=== PATIENT | male | born 1945 | race Caucasian/White ===

== ENCOUNTER 2020-04-04 20:00 | Inpatient (IN) ==
[2020-04-04] MEDS ORDERED: cefTRIAXone 1,000 MG in SODIUM CHLORIDE 0.9% 100 ML IV STA (20:49)
[2020-04-04] MEDS ORDERED: FUROSEMIDE 40 MG/4 ML VIAL IV STA (20:49)
[2020-04-04] MEDS ORDERED: methylPREDNISolone SOD SUC 125 MG/2 ML VIAL IV STA (20:49)
[2020-04-04] MEDS ORDERED: ONDANSETRON 4 MG/2 ML VIAL IV STA (20:49)
[2020-04-04 21:25] LABS: Basophils # 0.1 10*3/uL (0.0-0.2); Basophils % 0.3 % (0.0-0.8); Eosinophils % 0.1 % (0.00-10.9); Hematocrit 42.4 VOL% (42.0-52.0); Lymphocytes # 1.5 10*3/uL (1.4-4.0); Lymphocytes % 5.1 % (21.2-54.2); Mean Corpuscular Volume 83.6 FL (87-102); Mean Platelet Volume 9.9 FL (9.6-12.0); Monocytes % 8.3 % (1.7-12.7); Neutrophils % 85.2 % (38.7-73.9); Platelet Count 307 T/CUMM (130-400); Red Blood Count 5.07 MC/CUMM (3.8-5.5); Red Cell Distribution Width 13.7 % (9.3-17.3); White Blood Count 30.2 T/CUMM (4-12)
[2020-04-04 21:47] LABS: Albumin 2.7 G/DL (3.4-5.0); Bilirubin,Total 0.7 MG/DL (0.2-1.0); Calcium 8.7 MG/DL (8.5-10.1); Osmolality,Calculated 268.9 MOS/KG (273-304)
[2020-04-04 21:50] LABS: INR 1.2; PT Patient Result 12.4 SECS (9.8-11.9)
[2020-04-04 21:59] LABS: Apearance,Urine CLOUDY (Clear); Bacteria,Urine Many /HPF (Few); Bilirubin,Urine Negative (Negative); Blood, Urine Large mg/dL (Negative); Glucose,Urine (UA) Negative (Negative); Ketones,Urine Negative (Negative); Mucus,Urine Occasional /LPF (Occasional); Nitrite,Urine Positive (Negative); Protein,Urine 30 MG/DL; RBC,Urine 17 /HPF (0-4); Squamous Epithelial Cell,Urine Occasional /HPF (0-10); Urine Color Amber (Yellow); Urine Specific Gravity 1.021 (1.001-1.035); WBC,Urine 528 /HPF (0-6)
[2020-04-05] MEDS ORDERED: ACETAMINOPHEN 325 MG TABLET PO PRN (02:21)
[2020-04-05] MEDS ORDERED: DEXTROSE 50% 25 GM/50 ML VIAL IV PRN (02:21)
[2020-04-05] MEDS ORDERED: ONDANSETRON 4 MG/2 ML VIAL IV PRN (02:21)
[2020-04-05] MEDS ORDERED: MAGNESIUM SULF RIDER 2 GM in PREMIX 1 EACH IV PRN (02:21)
[2020-04-05] MEDS ORDERED: DEXTROSE 50% 25 GM/50 ML SYRINGE IV PRN (02:21)
[2020-04-05] MEDS ORDERED: MAGNESIUM SULF RIDER 4 GM in PREMIX 1 EACH IV PRN (02:21)
[2020-04-05] MEDS ORDERED: GLUCAGON 1 MG VIAL IM PRN ×2 (02:21)
[2020-04-05] MEDS ORDERED: AZITHROMYCIN INJ 500 MG in SODIUM CHLORIDE 0.9% 250 ML IV SCH (02:30)
[2020-04-05] MEDS: AZITHROMYCIN 250 MG TABLET PO SCH (03:05)
[2020-04-05] MEDS: ENOXAPARIN 40 MG/0.4 ML SYRINGE SUBCUT SCH (06:30)
[2020-04-05 07:32] LABS: Basophils # 0.1 10*3/uL (0.0-0.2); Basophils % 0.3 % (0.0-0.8); Hematocrit 42.5 VOL% (42.0-52.0); Hemoglobin 13.9 GM/DL (14.0-18.0); Immature Granulocytes % 1.9 %; Lymphocytes # 0.7 10*3/uL (1.4-4.0); Lymphocytes % 2.6 % (21.2-54.2); Mean Corpuscular HGB Conc 32.7 GM/DL (32-36); Monocytes % 3.6 % (1.7-12.7); Neutrophils % 91.6 % (38.7-73.9); Platelet Count 256 T/CUMM (130-400); Red Cell Distribution Width 13.9 % (9.3-17.3); White Blood Count 26.9 T/CUMM (4-12)
[2020-04-05 08:33] LABS: Albumin 2.5 G/DL (3.4-5.0); Bilirubin,Total 0.5 MG/DL (0.2-1.0); Calcium 8.8 MG/DL (8.5-10.1); Ferritin 260.4 ng/ml (26-388); Osmolality,Calculated 274.2 MOS/KG (273-304); Total Protein 7.9 G/DL (6.4-8.3)
[2020-04-05 08:34] LABS: Anisocytosis 1+; Band Neutrophils 17 % (0-10); Lymphocytes 3 % (20-55); Platelet Estimate Normal; Segmented Neutrophils 76 % (50-85); Spherocytes Few; Total Cells Counted 100
[2020-04-05] MEDS ORDERED: ASPIRIN EC 81 MG TABLET PO SCH (09:00)
[2020-04-05 09:20] LABS: Calcium 9.3 MG/DL (8.5-10.1); Osmolality,Calculated 279.8 MOS/KG (273-304)
[2020-04-05 09:22] LABS: Risk Ratio 7.18; VLDL CHOLESTEROL 38.8 MG/DL
[2020-04-05] MEDS: LEVOTHYROXINE 75 MCG TABLET PO SCH (09:23)
[2020-04-05] MEDS: PANTOPRAZOLE 40 MG TABLET PO SCH (09:23)
[2020-04-05] MEDS: glipiZIDE 10 MG TABLET PO SCH ×2 (09:23→21:41)
[2020-04-05] MEDS: carvediloL 6.25 MG TABLET PO SCH ×2 (09:24→21:40)
[2020-04-05] MEDS: ZINC SULFATE 220 MG CAPSULE PO SCH (09:24)
[2020-04-05] MEDS: OMEGA 3 ACID ETHYL ESTERS 1 GM CAPSULE PO SCH ×2 (09:30→21:42)
[2020-04-05] MEDS: FUROSEMIDE 40 MG/4 ML VIAL IV SCH ×2 (09:31→15:53)
[2020-04-05] MEDS: INSULIN REGULAR 100 UNIT/ML SUBCUT SCH ×4 (09:33→21:00)
[2020-04-05] MEDS ORDERED: SODIUM POLYSTYRENE SULFATE 15 GM/60 ML BOTTLE PO STA (16:19)
[2020-04-05] MEDS: TAMSULOSIN 0.4 MG CAPSULE PO SCH (18:20)
[2020-04-05] MEDS ORDERED: INSULIN GLARGINE 100 UNIT/ML SUBCUT SCH (21:00)
[2020-04-05] MEDS: ASPIRIN EC 81 MG TABLET PO SCH (21:40)
[2020-04-05] MEDS: cefTRIAXone 1,000 MG in SODIUM CHLORIDE 0.9% 100 ML IV SCH (21:48)
[2020-04-06 06:28] LABS: Basophils % 0.1 % (0.0-0.8); Hematocrit 41.2 VOL% (42.0-52.0); Hemoglobin 13.1 GM/DL (14.0-18.0); Immature Granulocytes % 1.6 %; Immature Granulocytes Absolute 0.47 #; Lymphocytes # 0.9 10*3/uL (1.4-4.0); Lymphocytes % 3.2 % (21.2-54.2); Mean Corpuscular HGB Conc 31.8 GM/DL (32-36); Mean Corpuscular Volume 85.5 FL (87-102); Mean Platelet Volume 10.2 FL (9.6-12.0); Monocytes % 6.4 % (1.7-12.7); Neutrophils % 88.7 % (38.7-73.9); Platelet Count 297 T/CUMM (130-400); Red Blood Count 4.82 MC/CUMM (3.8-5.5); Red Cell Distribution Width 13.8 % (9.3-17.3); White Blood Count 28.5 T/CUMM (4-12)
[2020-04-06] MEDS: ENOXAPARIN 40 MG/0.4 ML SYRINGE SUBCUT SCH (06:38)
[2020-04-06] MEDS: LEVOTHYROXINE 75 MCG TABLET PO SCH (06:38)
[2020-04-06 06:47] LABS: Band Neutrophils 16 % (0-10); Lymphocytes 5 % (20-55); Platelet Estimate Normal; Segmented Neutrophils 68 % (50-85); Total Cells Counted 100
[2020-04-06 06:48] LABS: Anisocytosis 1+
[2020-04-06 06:49] LABS: Calcium 9.1 MG/DL (8.5-10.1); Osmolality,Calculated 288.5 MOS/KG (273-304)
[2020-04-06] MEDS: AZITHROMYCIN 250 MG TABLET PO SCH (09:14)
[2020-04-06] MEDS: OMEGA 3 ACID ETHYL ESTERS 1 GM CAPSULE PO SCH ×2 (09:14→22:14)
[2020-04-06] MEDS: PANTOPRAZOLE 40 MG TABLET PO SCH (09:14)
[2020-04-06] MEDS: FUROSEMIDE 40 MG/4 ML VIAL IV SCH ×2 (09:14→17:16)
[2020-04-06] MEDS: glipiZIDE 10 MG TABLET PO SCH ×2 (09:14→22:15)
[2020-04-06] MEDS: INSULIN REGULAR 100 UNIT/ML SUBCUT SCH ×4 (09:15→22:15)
[2020-04-06] MEDS: carvediloL 6.25 MG TABLET PO SCH ×2 (09:15→22:15)
[2020-04-06] MEDS ORDERED: ALBUTEROL/IPRATROPIUM 3 ML NEB RESP TX PRN (09:31)
[2020-04-06] MEDS: methylPREDNISolone SOD SUC 40 MG/1 ML VIAL IV SCH ×2 (10:54→18:16)
[2020-04-06] MEDS: TAMSULOSIN 0.4 MG CAPSULE PO SCH (18:30)
[2020-04-06] MEDS ORDERED: INSULIN GLARGINE 100 UNIT/ML SUBCUT SCH (21:00)
[2020-04-06] MEDS: cefTRIAXone 1,000 MG in SODIUM CHLORIDE 0.9% 100 ML IV SCH (22:12)
[2020-04-06] MEDS: ASPIRIN EC 81 MG TABLET PO SCH (22:15)
[2020-04-07] MEDS: INSULIN REGULAR 100 UNIT/ML SUBCUT SCH ×6 (00:36→22:38)
[2020-04-07] MEDS: methylPREDNISolone SOD SUC 40 MG/1 ML VIAL IV SCH ×2 (02:38→10:45)
[2020-04-07] MEDS: LEVOTHYROXINE 75 MCG TABLET PO SCH (06:16)
[2020-04-07] MEDS: ENOXAPARIN 40 MG/0.4 ML SYRINGE SUBCUT SCH (06:16)
[2020-04-07] MEDS: FUROSEMIDE 40 MG/4 ML VIAL IV SCH ×2 (10:44→18:30)
[2020-04-07] MEDS: AZITHROMYCIN 250 MG TABLET PO SCH (10:45)
[2020-04-07] MEDS: glipiZIDE 10 MG TABLET PO SCH ×2 (10:46→22:37)
[2020-04-07] MEDS: OMEGA 3 ACID ETHYL ESTERS 1 GM CAPSULE PO SCH ×2 (10:46→22:38)
[2020-04-07] MEDS: PANTOPRAZOLE 40 MG TABLET PO SCH (10:46)
[2020-04-07] MEDS: ZINC SULFATE 220 MG CAPSULE PO SCH (10:46)
[2020-04-07] MEDS: carvediloL 6.25 MG TABLET PO SCH ×2 (10:46→22:38)
[2020-04-07] MEDS ORDERED: INSULIN GLARGINE 100 UNIT/ML SUBCUT SCH (13:18)
[2020-04-07] MEDS: TAMSULOSIN 0.4 MG CAPSULE PO SCH (18:30)
[2020-04-07] MEDS: ASPIRIN EC 81 MG TABLET PO SCH (22:38)
[2020-04-07] MEDS: cefTRIAXone 1,000 MG in SODIUM CHLORIDE 0.9% 100 ML IV SCH (22:43)
[2020-04-08] MEDS: INSULIN REGULAR 100 UNIT/ML SUBCUT SCH ×3 (00:55→12:00)
[2020-04-08 05:51] LABS: Basophils # 0.1 10*3/uL (0.0-0.2); Basophils % 0.3 % (0.0-0.8); Hematocrit 42.1 VOL% (42.0-52.0); Hemoglobin 13.5 GM/DL (14.0-18.0); Immature Granulocytes % 2.3 %; Immature Granulocytes Absolute 0.54 #; Lymphocytes # 0.9 10*3/uL (1.4-4.0); Lymphocytes % 3.7 % (21.2-54.2); Mean Corpuscular HGB Conc 32.1 GM/DL (32-36); Mean Corpuscular Volume 84.7 FL (87-102); Mean Platelet Volume 10.3 FL (9.6-12.0); Monocytes % 5.3 % (1.7-12.7); Neutrophils % 88.4 % (38.7-73.9); Platelet Count 363 T/CUMM (130-400); Red Blood Count 4.97 MC/CUMM (3.8-5.5); White Blood Count 23.5 T/CUMM (4-12)
[2020-04-08] MEDS: LEVOTHYROXINE 75 MCG TABLET PO SCH (06:02)
[2020-04-08] MEDS: ENOXAPARIN 40 MG/0.4 ML SYRINGE SUBCUT SCH (06:02)
[2020-04-08 06:13] LABS: Hypochromasia 1+; Lymphocytes 8 % (20-55); Ovalocytes Slight; Platelet Estimate Adequate; Segmented Neutrophils 84 % (50-85); Total Cells Counted 100
[2020-04-08 06:21] LABS: Calcium 9.3 MG/DL (8.5-10.1); Osmolality,Calculated 303.5 MOS/KG (273-304)
[2020-04-08] MEDS: AZITHROMYCIN 250 MG TABLET PO SCH (08:41)
[2020-04-08] MEDS: carvediloL 6.25 MG TABLET PO SCH (08:41)
[2020-04-08] MEDS: FUROSEMIDE 40 MG/4 ML VIAL IV SCH (08:41)
[2020-04-08] MEDS: OMEGA 3 ACID ETHYL ESTERS 1 GM CAPSULE PO SCH (08:42)
[2020-04-08] MEDS: glipiZIDE 10 MG TABLET PO SCH (08:42)
[2020-04-08] MEDS: PANTOPRAZOLE 40 MG TABLET PO SCH (08:42)
[2020-04-08] MEDS ORDERED: predniSONE 20 MG TABLET PO SCH (09:00)
[2020-04-08 11:56] VITALS: BP 128/73
== END 2020-04-08 13:30 | disposition home or self-care (01) | DRG 871 ==
LOC: N.ED 20:00 → N.EDINP 04-05 02:21 → N.TELES 04-05 06:04
PROVIDERS: ADMIT Internal Medicine; ATTEND Internal Medicine

== ENCOUNTER 2020-06-26 17:01 | Inpatient (IN) ==
[2020-06-26 17:30] LABS: Basophils # 0.1 10*3/uL (0.0-0.2); Basophils % 0.6 % (0.0-0.8); Eosinophils # 1.1 10*3/uL (0.0-0.87); Eosinophils % 6.1 % (0.00-10.9); Hematocrit 40.6 VOL% (42.0-52.0); Hemoglobin 13.2 GM/DL (14.0-18.0); Immature Granulocytes % 0.8 %; Immature Granulocytes Absolute 0.14 #; Lymphocytes # 1.1 10*3/uL (1.4-4.0); Lymphocytes % 6.2 % (21.2-54.2); Mean Corpuscular HGB Conc 32.5 GM/DL (32-36); Mean Corpuscular Volume 81.5 FL (87-102); Mean Platelet Volume 9.3 FL (9.6-12.0); Monocytes % 7.9 % (1.7-12.7); Neutrophils % 78.4 % (38.7-73.9); Platelet Count 343 T/CUMM (130-400); Red Blood Count 4.98 MC/CUMM (3.8-5.5); Red Cell Distribution Width 13.8 % (9.3-17.3); White Blood Count 17.5 T/CUMM (4-12)
[2020-06-26 17:52] LABS: Albumin 2.4 G/DL (3.4-5.0); Bilirubin,Total 0.5 MG/DL (0.2-1.0); Calcium 8.4 MG/DL (8.5-10.1); Osmolality,Calculated 277.1 MOS/KG (273-304); Total Protein 7.1 G/DL (6.4-8.3)
[2020-06-26 17:56] LABS: Ferritin 147.1 ng/ml (26-388)
[2020-06-26] MEDS ORDERED: PIPERACILLIN/TAZOBACTAM 3,375 MG in SODIUM CHLORIDE 0.9% 100 ML IV STA (18:28)
[2020-06-26] MEDS ORDERED: FUROSEMIDE 40 MG/4 ML VIAL IV STA (18:28)
[2020-06-26] MEDS ORDERED: diphenhydrAMINE CAP 25 MG CAPSULE PO PRN (20:01)
[2020-06-26] MEDS ORDERED: hydrALAZINE 20 MG/1 ML VIAL IV PRN (20:01)
[2020-06-26] MEDS ORDERED: ACETAMINOPHEN 325 MG TABLET PO PRN (20:01)
[2020-06-26] MEDS ORDERED: ONDANSETRON 4 MG/2 ML VIAL IV PRN (20:01)
[2020-06-26] MEDS ORDERED: GLUCAGON 1 MG VIAL IM PRN ×2 (20:01)
[2020-06-26] MEDS ORDERED: guaiFENesin/DM ER 600-30 MG TABLET PO PRN (20:01)
[2020-06-26] MEDS ORDERED: DEXTROSE 50% 25 GM/50 ML VIAL IV PRN ×2 (20:01)
[2020-06-26] MEDS ORDERED: NICOTINE 21 MG/24 HR PATCH TRANSDERM PRN (20:01)
[2020-06-26] MEDS ORDERED: ZALEPLON 5 MG CAPSULE PO PRN (20:01)
[2020-06-26] MEDS ORDERED: DOCUSATE SODIUM 100 MG CAPSULE PO PRN (20:01)
[2020-06-26] MEDS ORDERED: AZITHROMYCIN INJ 500 MG in SODIUM CHLORIDE 0.9% 250 ML IV SCH (20:30)
[2020-06-26] MEDS ORDERED: SODIUM CHLORIDE 0.9% 100 ML IV ONE (20:54)
[2020-06-26] MEDS ORDERED: cefTRIAXone 1,000 MG in SYRINGE 1 EACH IV SCH (21:00)
[2020-06-26] MEDS: ENOXAPARIN 40 MG/0.4 ML SYRINGE SUBCUT SCH (21:11)
[2020-06-26] MEDS: INSULIN LISPRO 100 UNIT/ML SUBCUT SCH (21:47)
[2020-06-26] MEDS: traMADol 50 MG TABLET PO PRN (23:35)
[2020-06-27] MEDS: ALBUTEROL 2.5 MG/3 ML NEB RESP TX SCH ×4 (01:03→20:11)
[2020-06-27 05:38] LABS: Basophils # 0.1 10*3/uL (0.0-0.2); Basophils % 0.5 % (0.0-0.8); Eosinophils # 0.9 10*3/uL (0.0-0.87); Eosinophils % 4.6 % (0.00-10.9); Hemoglobin 11.9 GM/DL (14.0-18.0); Immature Granulocytes % 0.7 %; Immature Granulocytes Absolute 0.14 #; Lymphocytes # 1.6 10*3/uL (1.4-4.0); Mean Corpuscular HGB Conc 31.3 GM/DL (32-36); Mean Corpuscular Volume 82.8 FL (87-102); Mean Platelet Volume 9.8 FL (9.6-12.0); Monocytes % 8.7 % (1.7-12.7); Neutrophils % 77.5 % (38.7-73.9); Platelet Count 349 T/CUMM (130-400); Red Blood Count 4.59 MC/CUMM (3.8-5.5); Red Cell Distribution Width 13.8 % (9.3-17.3); White Blood Count 19.4 T/CUMM (4-12)
[2020-06-27 06:00] LABS: Calcium 8.5 MG/DL (8.5-10.1); Osmolality,Calculated 273.7 MOS/KG (273-304)
[2020-06-27] MEDS ORDERED: PANTOPRAZOLE 40 MG TABLET PO SCH (09:00)
[2020-06-27] MEDS ORDERED: AZITHROMYCIN 250 MG TABLET PO SCH (09:00)
[2020-06-27] MEDS: INSULIN LISPRO 100 UNIT/ML SUBCUT SCH ×4 (09:49→21:01)
[2020-06-27] MEDS: FUROSEMIDE 40 MG/4 ML VIAL IV SCH ×2 (09:51→17:46)
[2020-06-27] MEDS: traMADol 50 MG TABLET PO PRN (09:51)
[2020-06-27] MEDS ORDERED: POTASSIUM CHLORIDE 20 MEQ TABLET PO ONE ×2 (11:00→16:43)
[2020-06-27] MEDS: ASPIRIN EC 81 MG TABLET PO SCH (12:02)
[2020-06-27] MEDS ORDERED: ceFAZolin 2,000 MG in PREMIX 1 EACH IV ONE (16:28)
[2020-06-27] MEDS: VANCOMYCIN INJ 1,250 MG in SODIUM CHLORIDE 0.9% 250 ML IV SCH (17:47)
[2020-06-27] MEDS: PIPERACILLIN/TAZOBACTAM 3,375 MG in SODIUM CHLORIDE 0.9% 100 ML IV SCH (19:18)
[2020-06-27 19:40] LABS: Bilirubin,Urine Negative (Negative); Blood, Urine Small mg/dL (Negative); Glucose,Urine (UA) Negative (Negative); Hyaline Casts,Urine 5 /LPF (0-3); Ketones,Urine Negative (Negative); Mucus,Urine Occasional /LPF (Occasional); Nitrite,Urine Negative (Negative); Protein,Urine Negative; RBC,Urine 1 /HPF (0-4); Squamous Epithelial Cell,Urine Occasional /HPF (0-10); Urine Appearance Clear (Clear); Urine Color Amber (Yellow); Urine Specific Gravity 1.015 (1.001-1.035)
[2020-06-27 19:42] LABS: Urine Urobilinogen 0.2 EU/DL (0.2-1.0)
[2020-06-27] MEDS: TAMSULOSIN 0.4 MG CAPSULE PO SCH (21:01)
[2020-06-27] MEDS: ENOXAPARIN 40 MG/0.4 ML SYRINGE SUBCUT SCH (21:02)
[2020-06-27] MEDS: MORPHINE 4 MG/1 ML VIAL IV PRN (21:11)
[2020-06-28] MEDS: PIPERACILLIN/TAZOBACTAM 3,375 MG in SODIUM CHLORIDE 0.9% 100 ML IV SCH ×3 (00:38→16:34)
[2020-06-28] MEDS: ALBUTEROL 2.5 MG/3 ML NEB RESP TX SCH ×4 (02:12→19:23)
[2020-06-28] MEDS: VANCOMYCIN INJ 1,250 MG in SODIUM CHLORIDE 0.9% 250 ML IV SCH ×2 (05:17→20:36)
[2020-06-28 06:08] LABS: Basophils # 0.1 10*3/uL (0.0-0.2); Basophils % 0.7 % (0.0-0.8); Eosinophils % 5.5 % (0.00-10.9); Hematocrit 37.5 VOL% (42.0-52.0); Hemoglobin 11.8 GM/DL (14.0-18.0); Immature Granulocytes % 0.8 %; Immature Granulocytes Absolute 0.14 #; Lymphocytes # 1.2 10*3/uL (1.4-4.0); Lymphocytes % 6.4 % (21.2-54.2); Mean Corpuscular HGB Conc 31.5 GM/DL (32-36); Mean Corpuscular Volume 83.5 FL (87-102); Mean Platelet Volume 9.5 FL (9.6-12.0); Monocytes % 7.5 % (1.7-12.7); Neutrophils % 79.1 % (38.7-73.9); Platelet Count 327 T/CUMM (130-400); Red Blood Count 4.49 MC/CUMM (3.8-5.5); White Blood Count 17.9 T/CUMM (4-12)
[2020-06-28 06:30] LABS: Osmolality,Calculated 277.8 MOS/KG (273-304)
[2020-06-28] MEDS: LEVOTHYROXINE 75 MCG TABLET PO SCH (06:36)
[2020-06-28 06:41] LABS: Free T4 (Free Thyroxine) 1.53 NG/DL (0.76-1.46); Thyroid Stimulating Hormone 3.06 uIU/ml (0.358-3.74)
[2020-06-28] MEDS: INSULIN LISPRO 100 UNIT/ML SUBCUT SCH ×4 (07:44→21:50)
[2020-06-28] MEDS ORDERED: ceFAZolin 2,000 MG in PREMIX 1 EACH IV ONE (08:00)
[2020-06-28] MEDS ORDERED: ROPIVACAINE 0.5% 30 ML VIAL ONE (08:19)
[2020-06-28] MEDS ORDERED: cefTRIAXone 1,000 MG VIAL ONE (08:46)
[2020-06-28] MEDS ORDERED: POTASSIUM CHLORIDE 20 MEQ TABLET PO SCH (09:00)
[2020-06-28] MEDS ORDERED: propofoL 200 MG/20 ML VIAL IV ONE (09:51)
[2020-06-28] MEDS ORDERED: LIDOCAINE 2% 5 ML VIAL ONE (09:52)
[2020-06-28] MEDS ORDERED: fentaNYL 100 MCG/2 ML VIAL ONE (09:52)
[2020-06-28] MEDS ORDERED: ONDANSETRON 4 MG/2 ML VIAL ONE (09:52)
[2020-06-28] MEDS ORDERED: SEVOFLURANE 1 UNIT/15 MINUTE INH ONE (09:52)
[2020-06-28] MEDS ORDERED: SUCCINYLCHOLINE 200 MG/10 ML VIAL ONE (09:52)
[2020-06-28] MEDS ORDERED: PHENYLEPHRINE DRIP 0 MG/0 ML PREMIX IV ONE (09:56)
[2020-06-28] MEDS ORDERED: MEPERIDINE 25 MG/1 ML VIAL ONE (09:57)
[2020-06-28] MEDS ORDERED: HYDROmorphone 2 MG/1 ML VIAL ONE (10:04)
[2020-06-28] MEDS ORDERED: MEPERIDINE 25 MG/1 ML VIAL IV PRN (10:06)
[2020-06-28] MEDS ORDERED: ONDANSETRON 4 MG/2 ML VIAL IV PRN (10:06)
[2020-06-28] MEDS: HYDROmorphone 2 MG/1 ML VIAL IV PRN ×2 (10:10→10:20)
[2020-06-28] MEDS: ASPIRIN EC 81 MG TABLET PO SCH (11:10)
[2020-06-28] MEDS: FUROSEMIDE 40 MG/4 ML VIAL IV SCH (11:11)
[2020-06-28] MEDS: ENOXAPARIN 40 MG/0.4 ML SYRINGE SUBCUT SCH (21:50)
[2020-06-28] MEDS: MORPHINE 4 MG/1 ML VIAL IV PRN (21:53)
[2020-06-28] MEDS: TAMSULOSIN 0.4 MG CAPSULE PO SCH (21:54)
[2020-06-29] MEDS: ALBUTEROL 2.5 MG/3 ML NEB RESP TX SCH ×4 (00:09→20:23)
[2020-06-29] MEDS: PIPERACILLIN/TAZOBACTAM 3,375 MG in SODIUM CHLORIDE 0.9% 100 ML IV SCH ×3 (01:12→16:31)
[2020-06-29] MEDS: VANCOMYCIN INJ 1,250 MG in SODIUM CHLORIDE 0.9% 250 ML IV SCH ×2 (05:20→17:46)
[2020-06-29] MEDS: LEVOTHYROXINE 75 MCG TABLET PO SCH (06:02)
[2020-06-29] MEDS ORDERED: HYDROmorphone 2 MG/1 ML VIAL IV PRN (06:58)
[2020-06-29] MEDS: oxyCODONE/ACETAMINOPHEN 5-325 MG TABLET PO PRN (08:20)
[2020-06-29] MEDS: INSULIN LISPRO 100 UNIT/ML SUBCUT SCH ×4 (08:21→21:19)
[2020-06-29] MEDS: ASPIRIN EC 81 MG TABLET PO SCH (08:21)
[2020-06-29 08:43] LABS: Basophils # 0.1 10*3/uL (0.0-0.2); Basophils % 0.9 % (0.0-0.8); Eosinophils # 1.6 10*3/uL (0.0-0.87); Eosinophils % 11.7 % (0.00-10.9); Hematocrit 34.8 VOL% (42.0-52.0); Hemoglobin 10.6 GM/DL (14.0-18.0); Immature Granulocytes % 1.3 %; Immature Granulocytes Absolute 0.18 #; Lymphocytes # 1.3 10*3/uL (1.4-4.0); Lymphocytes % 9.3 % (21.2-54.2); Mean Corpuscular HGB Conc 30.5 GM/DL (32-36); Mean Corpuscular Volume 84.1 FL (87-102); Mean Platelet Volume 9.8 FL (9.6-12.0); Monocytes % 6.7 % (1.7-12.7); Neutrophils % 70.1 % (38.7-73.9); Platelet Count 352 T/CUMM (130-400); Red Blood Count 4.14 MC/CUMM (3.8-5.5); White Blood Count 13.4 T/CUMM (4-12)
[2020-06-29] MEDS ORDERED: SODIUM HYPOCHLORITE 0.25% IRRIG 473 ML BOTTLE TOP SCH (09:00)
[2020-06-29] MEDS ORDERED: FUROSEMIDE 40 MG TABLET PO SCH (09:00)
[2020-06-29 09:07] LABS: Calcium 8.7 MG/DL (8.5-10.1); Osmolality,Calculated 280.8 MOS/KG (273-304)
[2020-06-29 09:08] LABS: Eosinophils 16 % (0-10); Hypochromasia 1+; Lymphocytes 8 % (20-55); Microcytosis 1+; Ovalocytes Slight; Platelet Estimate Adequate; Segmented Neutrophils 68 % (50-85); Total Cells Counted 100
[2020-06-29] MEDS: HYDROmorphone 2 MG/1 ML VIAL IV PRN ×2 (11:34→12:12)
[2020-06-29] MEDS: SODIUM HYPOCHLORITE 0.25% IRRIG 473 ML BOTTLE TOP SCH (12:13)
[2020-06-29] MEDS: ENOXAPARIN 40 MG/0.4 ML SYRINGE SUBCUT SCH (21:19)
[2020-06-29] MEDS: TAMSULOSIN 0.4 MG CAPSULE PO SCH (21:19)
[2020-06-30] MEDS: PIPERACILLIN/TAZOBACTAM 3,375 MG in SODIUM CHLORIDE 0.9% 100 ML IV SCH ×3 (00:29→16:10)
[2020-06-30] MEDS: ALBUTEROL 2.5 MG/3 ML NEB RESP TX SCH ×4 (01:25→19:52)
[2020-06-30 06:00] LABS: Basophils # 0.1 10*3/uL (0.0-0.2); Basophils % 1.2 % (0.0-0.8); Eosinophils # 1.8 10*3/uL (0.0-0.87); Eosinophils % 17.3 % (0.00-10.9); Hematocrit 33.8 VOL% (42.0-52.0); Hemoglobin 10.3 GM/DL (14.0-18.0); Immature Granulocytes % 1.8 %; Immature Granulocytes Absolute 0.19 #; Lymphocytes # 1.3 10*3/uL (1.4-4.0); Lymphocytes % 12.9 % (21.2-54.2); Mean Corpuscular HGB Conc 30.5 GM/DL (32-36); Mean Platelet Volume 9.7 FL (9.6-12.0); Monocytes % 7.9 % (1.7-12.7); Neutrophils % 58.9 % (38.7-73.9); Platelet Count 357 T/CUMM (130-400); Red Blood Count 3.93 MC/CUMM (3.8-5.5); White Blood Count 10.4 T/CUMM (4-12)
[2020-06-30 06:18] LABS: Calcium 8.5 MG/DL (8.5-10.1); Osmolality,Calculated 289.4 MOS/KG (273-304)
[2020-06-30] MEDS: LEVOTHYROXINE 75 MCG TABLET PO SCH (06:28)
[2020-06-30 06:36] LABS: Eosinophils 20 % (0-10); Hypochromasia 1+; Lymphocytes 8 % (20-55); Microcytosis 1+; Platelet Estimate Adequate; Segmented Neutrophils 63 % (50-85); Total Cells Counted 100
[2020-06-30] MEDS: oxyCODONE/ACETAMINOPHEN 5-325 MG TABLET PO PRN ×2 (06:36→18:34)
[2020-06-30] MEDS: INSULIN LISPRO 100 UNIT/ML SUBCUT SCH ×4 (08:34→22:13)
[2020-06-30] MEDS: ASPIRIN EC 81 MG TABLET PO SCH (08:35)
[2020-06-30] MEDS: SODIUM HYPOCHLORITE 0.25% IRRIG 473 ML BOTTLE TOP SCH ×2 (10:20→22:14)
[2020-06-30] MEDS: carvediloL 6.25 MG TABLET PO SCH (16:09)
[2020-06-30] MEDS: INSULIN GLARGINE 100 UNIT/ML SUBCUT SCH (16:10)
[2020-06-30] MEDS ORDERED: VANCOMYCIN INJ 1,250 MG in SODIUM CHLORIDE 0.9% 250 ML IV SCH (21:00)
[2020-06-30] MEDS: ENOXAPARIN 40 MG/0.4 ML SYRINGE SUBCUT SCH (22:13)
[2020-06-30] MEDS: TAMSULOSIN 0.4 MG CAPSULE PO SCH (22:13)
[2020-06-30] MEDS: HYDROmorphone 2 MG/1 ML VIAL IV PRN (22:18)
[2020-07-01] MEDS: PIPERACILLIN/TAZOBACTAM 3,375 MG in SODIUM CHLORIDE 0.9% 100 ML IV SCH ×2 (01:20→09:52)
[2020-07-01] MEDS: ALBUTEROL 2.5 MG/3 ML NEB RESP TX SCH ×4 (01:59→19:45)
[2020-07-01 05:28] LABS: Basophils # 0.1 10*3/uL (0.0-0.2); Basophils % 1.3 % (0.0-0.8); Eosinophils % 19.5 % (0.00-10.9); Hemoglobin 11.2 GM/DL (14.0-18.0); Immature Granulocytes % 2.6 %; Immature Granulocytes Absolute 0.27 #; Lymphocytes # 1.6 10*3/uL (1.4-4.0); Lymphocytes % 15.7 % (21.2-54.2); Mean Corpuscular HGB Conc 30.3 GM/DL (32-36); Mean Corpuscular Volume 85.5 FL (87-102); Mean Platelet Volume 9.8 FL (9.6-12.0); Monocytes % 8.1 % (1.7-12.7); Neutrophils % 52.8 % (38.7-73.9); Platelet Count 382 T/CUMM (130-400); Red Blood Count 4.33 MC/CUMM (3.8-5.5); Red Cell Distribution Width 13.8 % (9.3-17.3); White Blood Count 10.4 T/CUMM (4-12)
[2020-07-01] MEDS: LEVOTHYROXINE 75 MCG TABLET PO SCH (05:41)
[2020-07-01 05:45] LABS: Calcium 8.9 MG/DL (8.5-10.1); Osmolality,Calculated 291.8 MOS/KG (273-304)
[2020-07-01 05:50] LABS: Band Neutrophils 1 % (0-10); Eosinophils 17 % (0-10); Hypochromasia 1+; Lymphocytes 14 % (20-55); Microcytosis 1+; Platelet Estimate Adequate; Segmented Neutrophils 61 % (50-85); Total Cells Counted 100
[2020-07-01] MEDS: INSULIN GLARGINE 100 UNIT/ML SUBCUT SCH (09:47)
[2020-07-01] MEDS: INSULIN LISPRO 100 UNIT/ML SUBCUT SCH ×4 (09:47→20:15)
[2020-07-01] MEDS: ASPIRIN EC 81 MG TABLET PO SCH (09:48)
[2020-07-01] MEDS: FUROSEMIDE 20 MG TABLET PO SCH (09:48)
[2020-07-01] MEDS: carvediloL 6.25 MG TABLET PO SCH ×2 (09:48→16:49)
[2020-07-01] MEDS: oxyCODONE/ACETAMINOPHEN 5-325 MG TABLET PO PRN ×2 (09:49→20:15)
[2020-07-01] MEDS: SODIUM HYPOCHLORITE 0.25% IRRIG 473 ML BOTTLE TOP SCH ×2 (09:56→20:18)
[2020-07-01] MEDS: cefTRIAXone 1,000 MG in SYRINGE 1 EACH IV SCH (12:09)
[2020-07-01] MEDS: TAMSULOSIN 0.4 MG CAPSULE PO SCH (20:15)
[2020-07-01] MEDS: ENOXAPARIN 40 MG/0.4 ML SYRINGE SUBCUT SCH (20:16)
[2020-07-02] MEDS: ALBUTEROL 2.5 MG/3 ML NEB RESP TX SCH ×2 (00:58→07:45)
[2020-07-02] MEDS: LEVOTHYROXINE 75 MCG TABLET PO SCH (05:48)
[2020-07-02 05:59] LABS: Basophils # 0.2 10*3/uL (0.0-0.2); Basophils % 1.6 % (0.0-0.8); Eosinophils # 1.8 10*3/uL (0.0-0.87); Eosinophils % 17.2 % (0.00-10.9); Hemoglobin 11.7 GM/DL (14.0-18.0); Immature Granulocytes % 4.5 %; Immature Granulocytes Absolute 0.48 #; Lymphocytes # 1.8 10*3/uL (1.4-4.0); Lymphocytes % 16.7 % (21.2-54.2); Mean Corpuscular Volume 86.5 FL (87-102); Mean Platelet Volume 10.4 FL (9.6-12.0); Monocytes % 7.9 % (1.7-12.7); Neutrophils % 52.1 % (38.7-73.9); Platelet Count 341 T/CUMM (130-400); Red Blood Count 4.51 MC/CUMM (3.8-5.5); Red Cell Distribution Width 13.8 % (9.3-17.3); White Blood Count 10.6 T/CUMM (4-12)
[2020-07-02 06:10] LABS: Calcium 9.2 MG/DL (8.5-10.1)
[2020-07-02] MEDS ORDERED: glipiZIDE 10 MG TABLET PO SCH (07:30)
[2020-07-02 07:40] VITALS: BP 148/79
[2020-07-02] MEDS: ASPIRIN EC 81 MG TABLET PO SCH (09:10)
[2020-07-02] MEDS: INSULIN LISPRO 100 UNIT/ML SUBCUT SCH (09:11)
[2020-07-02] MEDS: FUROSEMIDE 20 MG TABLET PO SCH (09:11)
[2020-07-02] MEDS: INSULIN GLARGINE 100 UNIT/ML SUBCUT SCH (09:11)
[2020-07-02] MEDS: carvediloL 6.25 MG TABLET PO SCH (09:11)
[2020-07-02] MEDS: oxyCODONE/ACETAMINOPHEN 5-325 MG TABLET PO PRN (09:12)
[2020-07-02] MEDS: cefTRIAXone 1,000 MG in SYRINGE 1 EACH IV SCH (09:13)
[2020-07-02] MEDS: SODIUM HYPOCHLORITE 0.25% IRRIG 473 ML BOTTLE TOP SCH (09:14)
[2020-07-02 10:29] LABS: Band Neutrophils 4 % (0-10); Lymphocytes 18 % (20-55); Metamyelocytes 3 %; Total Cells Counted 100
[2020-07-02 10:31] LABS: Eosinophils 19 % (0-10); Hypersegmented Neutrophil 2+; Ovalocytes Few; Platelet Estimate Normal; Segmented Neutrophils 52 % (50-85)
== END 2020-07-02 11:46 | disposition home health service (06) | DRG 711 ==
LOC: N.ED 17:01 → N.EDINP 17:01 → SUATTDRO 20:01 → N.EDINP 22:20 → N.5E 22:30
PROVIDERS: ADMIT Hospitalist; ATTEND Internal Medicine

== ENCOUNTER 2022-05-12 20:52 | Observation (INO) ==
[2022-05-12 23:29] LABS: Basophils # 0.1 10*3/uL (0.0-0.2); Basophils % 0.7 % (0.0-0.8); Eosinophils # 0.8 10*3/uL (0.0-0.87); Hematocrit 44.2 VOL% (42.0-52.0); Hemoglobin 14.8 GM/DL (14.0-18.0); Immature Granulocytes Absolute 0.18 #; Lymphocytes # 1.2 10*3/uL (1.4-4.0); Lymphocytes % 6.6 % (21.2-54.2); Mean Corpuscular HGB Conc 33.5 GM/DL (32-36); Mean Corpuscular Volume 86.8 FL (87-102); Monocytes # 1.9 10*3/uL (0.11-0.8); Monocytes % 10.1 % (1.7-12.7); Neutrophils % 77.6 % (38.7-73.9); Platelet Count 275 T/CUMM (130-400); Red Blood Count 5.09 MC/CUMM (3.8-5.5); Red Cell Distribution Width 13.4 % (9.3-17.3); White Blood Count 18.9 T/CUMM (4-12)
[2022-05-12 23:31] LABS: Hyaline Casts,Urine 7 /LPF (0-3); Mucus,Urine Occasional /LPF (Occasional); RBC,Urine 1 /HPF (0-4)
[2022-05-12 23:32] LABS: Bilirubin,Urine Negative (Negative); Blood, Urine Trace mg/dL (Negative); Glucose,Urine (UA) Negative (Negative); Ketones,Urine Negative (Negative); Nitrite,Urine Negative (Negative); Protein,Urine Negative (Negative); Urine Appearance Clear (Clear); Urine Color Yellow (Yellow); Urine Urobilinogen 0.2 eU/dL (<2.0); Urine pH 5.5 (4.5-8.0)
[2022-05-12 23:50] LABS: Bilirubin,Total 0.7 MG/DL (0.20-1.00); Calcium 8.9 MG/DL (8.5-10.1); Osmolality,Calculated 285.3 MOS/KG (273-304); Potassium 3.6 MMOL/L (3.5-5.1); Total Protein 7.3 G/DL (6.4-8.2)
[2022-05-13] MEDS ORDERED: NICOTINE 21 MG/24 HR PATCH TRANSDERM PRN (02:01)
[2022-05-13] MEDS ORDERED: DEXTROSE 10% 250 ML BAG IV PRN (02:01)
[2022-05-13] MEDS ORDERED: ENOXAPARIN 100 MG/ML SYRINGE SUBCUT ONE (02:01)
[2022-05-13] MEDS ORDERED: ONDANSETRON 4 MG/2 ML VIAL IV PRN (02:01)
[2022-05-13] MEDS ORDERED: FUROSEMIDE 40 MG/4 ML VIAL IV STA (02:01)
[2022-05-13] MEDS ORDERED: GLUCAGON 1 MG VIAL IM PRN (02:01)
[2022-05-13] MEDS ORDERED: hydrALAZINE 20 MG/1 ML VIAL IV PRN (02:01)
[2022-05-13] MEDS ORDERED: POTASSIUM CHLORIDE 20 MEQ TABLET PO STA (02:01)
[2022-05-13] MEDS ORDERED: MORPHINE 2 MG/1 ML SYRINGE IV PRN (02:01)
[2022-05-13] MEDS ORDERED: ACETAMINOPHEN 325 MG TABLET PO PRN (02:01)
[2022-05-13] MEDS ORDERED: FUROSEMIDE 40 MG/4 ML VIAL ONE (02:18)
[2022-05-13 03:30] LABS: Hepatitis B Core IgM Quant 0.17 Index; Hepatitis B Surface Ag Quant < 0.10 Index; Hepatitis B Surface Ag Result Non-Reactive (NonReactive); Hepatitis C Virus Ab Quant 0.05 Index; Hepatitis C Virus Ab Result Non-Reactive (NonReactive)
[2022-05-13] MEDS ORDERED: MAGNESIUM SULF RIDER 2 GM/50 ML PREMIX IV ONE (04:10)
[2022-05-13 05:53] LABS: Basophils # 0.1 10*3/uL (0.0-0.2); Basophils % 0.6 % (0.0-0.8); Eosinophils # 0.6 10*3/uL (0.0-0.87); Eosinophils % 2.9 % (0.00-10.9); Hematocrit 43.3 VOL% (42.0-52.0); Hemoglobin 14.2 GM/DL (14.0-18.0); Immature Granulocytes % 1.1 %; Immature Granulocytes Absolute 0.21 #; Lymphocytes # 1.4 10*3/uL (1.4-4.0); Mean Corpuscular HGB Conc 32.8 GM/DL (32-36); Mean Corpuscular Volume 87.3 FL (87-102); Mean Platelet Volume 10.7 FL (9.6-12.0); Monocytes % 10.1 % (1.7-12.7); Neutrophils % 78.3 % (38.7-73.9); Platelet Count 319 T/CUMM (130-400); Red Blood Count 4.96 MC/CUMM (3.8-5.5); Red Cell Distribution Width 13.4 % (9.3-17.3); White Blood Count 19.4 T/CUMM (4-12)
[2022-05-13] MEDS ORDERED: POTASSIUM CHLORIDE 20 MEQ TABLET PO PRN (06:18)
[2022-05-13 06:20] LABS: Albumin 2.6 G/DL (3.4-5.0); Bilirubin,Total 0.7 MG/DL (0.20-1.00); Calcium 9.4 MG/DL (8.5-10.1); Osmolality,Calculated 277.8 MOS/KG (273-304); Potassium 3.6 MMOL/L (3.5-5.1); Thyroid Stimulating Hormone 2.74 uIU/ml (0.358-3.74); Total Protein 7.5 G/DL (6.4-8.2)
[2022-05-13] MEDS: LEVOTHYROXINE 75 MCG TABLET PO SCH (06:22)
[2022-05-13] MEDS: LEVOFLOXACIN INJ 500 MG/100 ML PREMIX IV SCH (07:18)
[2022-05-13] MEDS ORDERED: POTASSIUM CHLORIDE 20 MEQ TABLET PO ONE (07:42)
[2022-05-13] MEDS ORDERED: carvediloL 6.25 MG TABLET PO SCH (09:00)
[2022-05-13] MEDS ORDERED: FUROSEMIDE 20 MG TABLET PO SCH (09:00)
[2022-05-13] MEDS: carvediloL 12.5 MG TABLET PO SCH ×2 (09:11→21:17)
[2022-05-13] MEDS: APIXABAN 5 MG TABLET PO SCH ×2 (09:11→21:17)
[2022-05-13] MEDS: LOSARTAN 50 MG TABLET PO SCH (09:11)
[2022-05-13] MEDS: ASPIRIN EC 81 MG TABLET PO SCH (09:11)
[2022-05-13] MEDS: gemfibroziL 600 MG TABLET PO SCH ×2 (09:11→21:16)
[2022-05-13] MEDS: PANTOPRAZOLE 40 MG TABLET PO SCH (09:16)
[2022-05-13] MEDS: ASCORBIC ACID 500 MG TABLET PO SCH ×2 (09:17→21:16)
[2022-05-13] MEDS: NEOMYCIN/POLYMYXIN/HC OTIC SOLN 10 ML BOTTLE LEFT EAR SCH ×4 (09:35→21:34)
[2022-05-13] MEDS: INSULIN LISPRO 100 UNIT/ML SUBCUT SCH ×4 (09:35→21:17)
[2022-05-13] MEDS: SPIRONOLACTONE 25 MG TABLET PO SCH (10:11)
[2022-05-13] MEDS: TAMSULOSIN 0.4 MG CAPSULE PO SCH (21:16)
[2022-05-14] MEDS: LEVOFLOXACIN INJ 500 MG/100 ML PREMIX IV SCH (03:15)
[2022-05-14] MEDS: LEVOTHYROXINE 75 MCG TABLET PO SCH (05:42)
[2022-05-14 06:38] LABS: Basophils # 0.1 10*3/uL (0.0-0.2); Basophils % 0.7 % (0.0-0.8); Eosinophils # 0.7 10*3/uL (0.0-0.87); Eosinophils % 4.6 % (0.00-10.9); Immature Granulocytes % 2.1 %; Immature Granulocytes Absolute 0.32 #; Lymphocytes # 1.2 10*3/uL (1.4-4.0); Lymphocytes % 8.1 % (21.2-54.2); Mean Corpuscular HGB Conc 32.5 GM/DL (32-36); Mean Corpuscular Volume 87.9 FL (87-102); Monocytes # 1.4 10*3/uL (0.11-0.8); Monocytes % 9.4 % (1.7-12.7); Neutrophils % 75.1 % (38.7-73.9); Platelet Count 268 T/CUMM (130-400); Red Blood Count 4.55 MC/CUMM (3.8-5.5); Red Cell Distribution Width 13.7 % (9.3-17.3)
[2022-05-14 06:55] LABS: Calcium 8.6 MG/DL (8.5-10.1); Osmolality,Calculated 289.4 MOS/KG (273-304)
[2022-05-14] MEDS: gemfibroziL 600 MG TABLET PO SCH ×2 (09:54→21:44)
[2022-05-14] MEDS: APIXABAN 5 MG TABLET PO SCH ×2 (09:54→21:44)
[2022-05-14] MEDS: ASPIRIN EC 81 MG TABLET PO SCH (09:54)
[2022-05-14] MEDS: LOSARTAN 50 MG TABLET PO SCH (09:54)
[2022-05-14] MEDS: SPIRONOLACTONE 25 MG TABLET PO SCH ×2 (09:54→09:58)
[2022-05-14] MEDS: INSULIN LISPRO 100 UNIT/ML SUBCUT SCH ×4 (09:55→21:44)
[2022-05-14] MEDS: carvediloL 12.5 MG TABLET PO SCH ×2 (09:55→21:44)
[2022-05-14] MEDS: PANTOPRAZOLE 40 MG TABLET PO SCH (09:55)
[2022-05-14] MEDS: ASCORBIC ACID 500 MG TABLET PO SCH ×2 (09:55→21:44)
[2022-05-14] MEDS: NEOMYCIN/POLYMYXIN/HC OTIC SOLN 10 ML BOTTLE LEFT EAR SCH ×3 (15:26→21:44)
[2022-05-14] MEDS: TAMSULOSIN 0.4 MG CAPSULE PO SCH (21:44)
[2022-05-15] MEDS: LEVOFLOXACIN INJ 500 MG/100 ML PREMIX IV SCH (02:56)
[2022-05-15] MEDS: LEVOTHYROXINE 75 MCG TABLET PO SCH (05:01)
[2022-05-15 06:05] LABS: Basophils # 0.1 10*3/uL (0.0-0.2); Basophils % 0.8 % (0.0-0.8); Eosinophils # 1.2 10*3/uL (0.0-0.87); Eosinophils % 10.1 % (0.00-10.9); Hematocrit 42.1 VOL% (42.0-52.0); Hemoglobin 13.4 GM/DL (14.0-18.0); Immature Granulocytes % 2.5 %; Lymphocytes % 8.6 % (21.2-54.2); Mean Corpuscular HGB Conc 31.8 GM/DL (32-36); Mean Platelet Volume 10.1 FL (9.6-12.0); Monocytes % 8.4 % (1.7-12.7); Neutrophils % 69.6 % (38.7-73.9); Platelet Count 222 T/CUMM (130-400); Red Blood Count 4.73 MC/CUMM (3.8-5.5); Red Cell Distribution Width 13.6 % (9.3-17.3); White Blood Count 11.8 T/CUMM (4-12)
[2022-05-15 06:28] LABS: Calcium 8.8 MG/DL (8.5-10.1); Osmolality,Calculated 285.1 MOS/KG (273-304); Potassium 4.3 MMOL/L (3.5-5.1)
[2022-05-15] MEDS: ASCORBIC ACID 500 MG TABLET PO SCH ×2 (10:59→21:26)
[2022-05-15] MEDS: carvediloL 12.5 MG TABLET PO SCH ×2 (11:00→21:27)
[2022-05-15] MEDS: APIXABAN 5 MG TABLET PO SCH ×2 (11:00→21:27)
[2022-05-15] MEDS: INSULIN LISPRO 100 UNIT/ML SUBCUT SCH ×4 (11:00→21:35)
[2022-05-15] MEDS: gemfibroziL 600 MG TABLET PO SCH ×2 (11:00→21:26)
[2022-05-15] MEDS: SPIRONOLACTONE 25 MG TABLET PO SCH (11:00)
[2022-05-15] MEDS: ASPIRIN EC 81 MG TABLET PO SCH (11:00)
[2022-05-15] MEDS: PANTOPRAZOLE 40 MG TABLET PO SCH (11:00)
[2022-05-15] MEDS: NEOMYCIN/POLYMYXIN/HC OTIC SOLN 10 ML BOTTLE LEFT EAR SCH ×4 (12:39→21:27)
[2022-05-15] MEDS: TAMSULOSIN 0.4 MG CAPSULE PO SCH (21:27)
[2022-05-16] MEDS: LEVOFLOXACIN INJ 500 MG/100 ML PREMIX IV SCH (03:24)
[2022-05-16 04:16] LABS: Basophils # 0.1 10*3/uL (0.0-0.2); Basophils % 0.8 % (0.0-0.8); Eosinophils # 1.4 10*3/uL (0.0-0.87); Hematocrit 41.9 VOL% (42.0-52.0); Hemoglobin 13.2 GM/DL (14.0-18.0); Immature Granulocytes Absolute 0.52 #; Lymphocytes # 1.4 10*3/uL (1.4-4.0); Lymphocytes % 10.3 % (21.2-54.2); Mean Corpuscular HGB Conc 31.5 GM/DL (32-36); Mean Platelet Volume 9.9 FL (9.6-12.0); Monocytes # 1.2 10*3/uL (0.11-0.8); Monocytes % 8.8 % (1.7-12.7); Neutrophils % 65.1 % (38.7-73.9); Platelet Count 305 T/CUMM (130-400); Red Blood Count 4.71 MC/CUMM (3.8-5.5); Red Cell Distribution Width 13.4 % (9.3-17.3); White Blood Count 13.1 T/CUMM (4-12)
[2022-05-16 04:38] LABS: Calcium 8.5 MG/DL (8.5-10.1); Osmolality,Calculated 290.5 MOS/KG (273-304); Potassium 4.3 MMOL/L (3.5-5.1)
[2022-05-16 04:47] LABS: Eosinophils 11 % (0-10); Lymphocytes 8 % (20-55); Total Cells Counted 100
[2022-05-16 04:48] LABS: Hypochromia Slight; Microcytosis Slight; Platelet Estimate Adequate
[2022-05-16] MEDS: LEVOTHYROXINE 75 MCG TABLET PO SCH (06:25)
[2022-05-16] MEDS: gemfibroziL 600 MG TABLET PO SCH (10:10)
[2022-05-16] MEDS: INSULIN LISPRO 100 UNIT/ML SUBCUT SCH (10:10)
[2022-05-16] MEDS: ASPIRIN EC 81 MG TABLET PO SCH (10:10)
[2022-05-16] MEDS: ASCORBIC ACID 500 MG TABLET PO SCH (10:11)
[2022-05-16] MEDS: PANTOPRAZOLE 40 MG TABLET PO SCH (10:11)
[2022-05-16] MEDS: SPIRONOLACTONE 25 MG TABLET PO SCH (10:11)
[2022-05-16] MEDS: carvediloL 12.5 MG TABLET PO SCH (10:11)
[2022-05-16] MEDS: APIXABAN 5 MG TABLET PO SCH (10:11)
[2022-05-16] MEDS: NEOMYCIN/POLYMYXIN/HC OTIC SOLN 10 ML BOTTLE LEFT EAR SCH (10:12)
[2022-05-16 11:45] VITALS: BP 134/81
== END 2022-05-16 14:26 | disposition home or self-care (01) ==
LOC: N.ED 20:52 → N.EDINP 20:52 → SUATTDRO 05-13 02:01 → N.TELES 05-13 02:43
PROVIDERS: ADMIT Emergency Medicine; ATTEND Family Medicine